=== PATIENT | female | born 2000 | race Caucasian/White ===

== ENCOUNTER 2025-09-02 10:38 | Outpatient (AMB) | payer OTHER, SELFPAY ==
--- NOTE | 2025-09-02 10:46 | A.OFFPC_ITS ---
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 Accompanied by: Self / Same As Patient Allergies No Known Allergies Allergy (Verified 09/02/25 10:56) Medication List - Last Reconciled 09/02/25 by Edwin Peguero MD albuterol sulfate 90 mcg/actuation (Ventolin HFA) 2 puffs inhalation Q6H PRN aripiprazole mg PO aripiprazole 20 mg PO QAM bupropion HCl 100 mg PO BID diphenhydramine HCl 25 mg PO BEDTIME escitalopram oxalate 20 mg PO DAILY lamotrigine 50 mg PO DAILY nicotine (polacrilex) 4 mg buccal Q2H Tobacco use date assessed: 09/02/25 Dental Screening Dental Screen Date: 09/02/25 Did you have a dental visit in the last 12 months?: No Did you have a dental problem in the last 6 months where you did not have access to dental care?: Yes Was dental information given to patient?: Patient has dentist HPI HPI Comments History of Present Illness Details History of Present Illness The patient is a 25-year-old female presenting for evaluation of a wrist cyst. Ganglion cyst of wrist: The patient has a long-standing cyst on her dominant right wrist which has recently begun to cause loss of feeling in her thumb and forefinger. There is no history of a specific injury that caused the cyst. She was previously evaluated at an ER where it was suggested she would need surgical removal. Psychiatric History: The patient has a history of schizophrenia, borderline personality disorder (BPD), and bipolar depression. She is managed on multiple medications, including aripiprazole for auditory hallucinations, bupropion for depression and anxiety, citalopram for anxiety/depression and to help with weight gain, and lamotrigine for mood stabilization. She receives psychiatric care through [facility]. Weakness: The patient reports a progressive weakness in her left side, particularly her left arm, which she first noticed about a year ago. She has a family history of muscular dystrophy, as her mother and close friend whom she considers a sister have the condition. She also reports instances of her ankles giving out, leading to falls, including down a flight of stairs. Exercise-induced asthma: The patient reports trouble breathing and wheezing with strenuous activity, such as walking up a large hill. She has used an inhaler in the past but does not have a current prescription for one. Her mother had a history of asthma. Tobacco use disorder: The patient has been smoking since age 18 and currently smokes 3 to 4 cigarettes per day. She has successfully reduced her intake from a pack a day and expresses a desire to quit, having previously used nicotine gum. Health Maintenance: The patient has not seen a primary care doctor since 2018 and has never had a Pap smear or been to a power checker. She only recently obtained an ID for the first time, which was a barrier to seeking care. Irregular Menstrual Cycle: The patient reports her menstrual cycle is not regular, stating she recently did not have a period for two months, which she attributes to the stress of moving. When she has her period, she typically experiences one day of heavy bleeding followed by tube dispatcher flow. Surgical History: - Reconstructive ear surgery (tympanopla sty) at age 11 or 12 to repair a hole in her eardrum caused by a severe childhood ear infection. Medications: - Aripiprazole (Abilify) for auditory mckeon llucinations - Bupropion (Wellbutrin) for depression and anxiety - Citalopram oxalate for weight gain, an xiety, and depression - Lamotrigine for irritability and anger - Two unspecified medications for anxiet y - Unspecified medication for sleep Social History: - Employment: Currently unemployed but h as been searching for a job for a few months. 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 - Housing: Recently moved from [place], [place] to [place] to live with a close friend she considers a sister. - Substance Use: Smokes 3-4 cigarettes a day, since the age of 18. - Level of Activity: Reports walking solo rywhere as her primary mode of transportation. Family History: - Mother (): Had muscular dystro phy, high blood pressure, diabetes, and asthma. - Sister (close friend): Has muscular dy strophy. Diagnostic Results: - Vitals: Blood pressure is 104/x mmHg. Past Medical History - Schizophrenia - Borderline personality disorder (BPD) - Bipolar disorder with depression - History of hypertension, with usual re adings of 140-160 mmHg, particularly during anxious situations. - History of ruptured eardrum as a baby secondary to an ear infection. Health Maintenance - A comprehensive lab panel including CB C, CMP, HbA1c, lipids, Hep B, Hep C, HIV, TSH, vitamin B12, folate, and vitamin D will be drawn. - The patient was instructed to schedule an appointment for a Pap smear. - A follow-up visit is scheduled in two weeks. [facility], [facility] Medical History (Updated 09/02/25 @ 13:08 by Edwin Peguero MD) Class 1 obesity Nicotine use disorder Mild intermittent asthma Family history of muscular dystrophy Schizophrenia Borderline personality disorder Bipolar depression Ganglion cyst of dorsum of right wrist Mass of right wrist Wrist pain, left Surgical History (Updated 09/02/25 @ 11:02 by Kendall Villegas [facility]) History of ear surgery Family History (Updated 09/02/25 @ 11:03 by Kendall Villegas [employer] REPA[employer] SUPERVISOR) Brother Substance abuse Father Substance abuse FH: mental illness Asthma Mother FH: mental illness Diabetes Hypertension Social History (Updated 09/02/25 @ 11:04 by Kendall Villegas [facility]) Housing: Apartment Alcohol intake: former Patient Tobacco Use Status: Current everyday Tobacco user Cigarettes Per Day: 4 e-Cigarette/Vaping Use: Currently Using Second Hand Smoke Exposure: Yes Substance Use Type: Crack/Cocaine and Marijuana service: No Current occupational status: unemployed Cognitive needs: No Hearing needs: No Vision needs: Yes Questionnaire PHQ-9 Over the last 2 weeks, how often have you been bothered by any of the following problems? 1. Little interest or pleasure in doing things: several days 2. Feeling down, depressed, or hopeless: several days 3. Trouble falling or staying asleep, or sleeping too much: several days 4. Feeling tired or having little energy: several days 5. Poor appetite or overeating: several days 6. Feeling bad about yourself - or that you are a failure or have let yourself or your family down: not at all 7. Trouble concentrating on things, such as reading the newspaper or watching te levision: several days 8. Moving or speaking so slowly that other people could have noticed. Or the opposite - being so fidgety or restless that you have been moving around a lot more than usual: not at all 9. Thoughts that you would be better off or of hurting yourself in some way: not at all Total score: 6 Depression Screening Interpretation: Negative Depression Screening Done: Yes 32257 - PHQ-9 Billing: Yes Source: Developed by Drs. Ronni Denney, Alyx Thomas, Shubham Ding and colleagues, with an educational job from [employer]. Thrive Questionnaire Date Thrive assessed: 09/02/25 I am a: Patient What is your living situation today?: I have a steady place to live Within the past 12 months, did the food you bought not last and you didn't have the money to get more?: Never true Within the past 12 months, did you worry whether your food would run out before you got money to buy more?: Never true Do you have trouble paying for medicines?: No Do you have trouble getting transportation to medical appointments?: Yes Do you have trouble paying your heating and electricity bill?: I choose not to answer this question Do you have trouble taking care of your child, family member or friend?: I choose not to answer this question Are you currently unemployed and looking for a job?: Yes Are you interested in more education?: No Please select the resources that you would like help with: Housing/[facility], Transportation and Job search/training Currently or been in a relationship where the following occur: No concerns reported THRIVE Score: 1 AUDIT C Alcohol Use Questionnaire (AUDIT-C) 1. How often do you have a drink containing alcohol?: Never Total Score: 0 TAL-7 AMB Questionnaire TAL-7 Date TAL - 7 assessed: 09/02/25 Feeling nervous, anxious, or on edge: 1 = Several days Not being able to stop or control worryin = Several days Worrying too much about different things: 1 = Several days Trouble relaxin = Several days Being so restless that it is hard to sit still: 1 = Several days Becoming easily annoyed or irritable: 1 = Several days Feeling afraid as if something awful might happen: 0 = Not at all Total TAL-7 score (0-4 normal; 5-9 mild; 10-14 moderate; 15-21 severe): 6 Source: Developed by Alyx Patino, Shubham Ding and colleagues, with an educational job from [employer]. TAL-7 Assessment Billing TAL-7 Assessment Tool: TAL-7 Assessment 92960 Review of Systems Narrative Review of Systems - Neurological: Reports loss of feeling in the left thumb and forefinger. - Musculoskeletal: Reports progressive weakness on her left side for about a year, particularly in her arm. - Respiratory: Reports trouble breathing and wheezing with strenuous activity. - Psychiatric: Reports hearing voices, irritability, and anger as part of her diagnosed conditions. - Constitutional: Reports not sleeping well despite being on sleep medication. - Genitourinary/Gynecological: Reports irregular menstrual cycles and is currently experiencing menstrual cramps. - GI/: Denies issues with urination or bowel movements. 10-point ROS reviewed and negative except as noted in HPI Physical exam (Primary Care) Vital Signs: Last Vital Signs Temp 98 F 09/02/25 11:04 Pulse 79 09/02/25 11:04 Resp 20 09/02/25 11:04 BP 104/70 09/02/25 11:04 Pulse Ox 97 09/02/25 11:04 Oxygen Delivery Method Room Air 09/02/25 11:04 BMI result Body Mass Index 34.7 Tobacco/Smoking Status: Tobacco use Status Tobacco use date assessed 09/02/25 09/02/25 11:06 Patient Tobacco Use Status Current everyday Tobacco 09/02/25 11:06 e-Cigarette/Vaping Use Currently Using 09/02/25 11:06 PHQ-9: PHQ-9 Score PHQ-9: Total score 6 09/02/25 10:48 Depression Screening Interpretation: Negative Thrive Assessment: Date of Thrive Assessment Date Thrive assessed 09/02/25 09/02/25 10:48 Currently or been in a relationship where the following occur: No concerns reported Narrative Physical Exam General: Well-appearing, in no acute distress. Vital signs: Blood pressure is currently 104, but patient reports it is normally 140-160. HEENT: Normocephalic, atraumatic. PERRLA, EOMI. Conjunctiva clear, sclera anicteric. Oropharynx clear, mucous membranes moist. TMs intact bilaterally, with a scar noted behind the ear from previous reconstructive surgery due to a perforated eardrum. Neck: Supple, no lymphadenopathy, no thyromegaly, no JVD or carotid bruits. Cardiovascular: RRR, normal S1/S2, no murmurs, rubs, or gallops. Peripheral pulses 2+ and symmetric. No edema. Respiratory: Lungs clear to auscultation bilaterally, no wheezes, rales, or rhonchi. Normal effort. Patient reports exercise-induced asthma and will be prescribed an albuterol inhaler. Abdomen: Soft, non-tender, non-distended. Normoactive bowel sounds. No hepatosplenomegaly, no masses. MSK: Full range of motion, no joint swelling or deformity. Normal gait. Patient reports weakness in the left arm and tingling in the left wrist and forefingers. X-ray of the wrist is planned. Skin: Warm, dry, intact. No rashes, lesions, or pallor. Neuro: Alert and oriented x3. Cranial nerves II-XII intact. Strength 5/5 throughout, except noted weakness in the left arm. Sensation intact. Reflexes 2+ symmetric. Normal coordination and gait. Psych: Appropriate mood and affect. Normal judgment and insight. Patient is on multiple medications for schizophrenia, borderline personality disorder, bipolar depression, and anxiety. Coding Level of Care Code New Pt Level 4 (44320) Diagnoses Mass of right wrist R22.31 Wrist pain, left M25.532 Ganglion cyst of dorsum of right wrist M67.431 Bipolar depression F31.9 Borderline personality disorder F60.3 Schizophrenia F20.9 Family history of muscular dystrophy Z82.0 Mild intermittent asthma J45.20 Nicotine use disorder F17.200 Class 1 obesity E66.9 Additional Codes TAL-7 Assessment Billing - TAL-7 Assessment Tool: TAL-7 Assessment 78788 ([id number]) PHQ-9 - 13260 - PHQ-9 Billing: Yes ([id number]) Assessment & Plan Assessment & Plan (1) Mass of right wrist: Code(s): R22.31 - Localized swelling, mass and lump, right upper limb Category: Medical (2) Wrist pain, left: Code(s): M25.532 - Pain in left wrist Category: Medical (3) Ganglion cyst of dorsum of right wrist: Code(s): M67.431 - Ganglion, right wrist Category: Medical (4) Bipolar depression: Code(s): F31.9 - Bipolar disorder, unspecified Category: Medical (5) Borderline personality disorder: Code(s): F60.3 - Borderline personality disorder Category: Medical (6) Schizophrenia: Code(s): F20.9 - Schizophrenia, unspecified Category: Medical (7) Family history of muscular dystrophy: Code(s): Z82.0 - Family history of epilepsy and other diseases of the nervous system Category: Medical (8) Mild intermittent asthma: Code(s): J45.20 - Mild intermittent asthma, uncomplicated Category: Medical (9) Nicotine use disorder: Code(s): F17.200 - Nicotine dependence, unspecified, uncomplicated Category: Medical (10) Class 1 obesity: Code(s): E66.9 - Obesity, unspecified Category: Medical Plan Consent The need for a Pap smear for cervical cancer screening was discussed with the patient, as she is over 21 and has never had one. The options of having the procedure done by a family medicine physician or receiving a referral to an BUSINESS APPLICATIONS SPECIALIST were presented. The patient expressed a preference to keep it all in house and verbally consented to having the Pap smear performed by her primary care doctor. Patient was informed and verbally consented to the use of an ambient scribe for clinic note documentation during this visit. Plan 1. Ganglion Cyst Of Right Wrist - An X-ray of the right wrist will be obtained to evaluate the calcified lesion. 2. Exercise-Induced Asthma - An albuterol sulfate inhaler will be prescribed for use during strenuous activity to manage symptoms of wheezing and dyspnea. 3. Tobacco Use Disorder - Nicotine gum will be prescribed to aid in smoking cessation, as the patient prefers this method over patches. 4. Weakness - The workup for left-sided weakness will be deferred to the next visit. - The patient was advised to find the specific name of the muscular dystrophy from her mother's records. - Future consideration will be given to a physical therapy referral and genetic testing. Discussion Notes I discussed the patient's primary concern regarding the calcified wrist cyst and the new onset of numbness. I explained that we would start with an X-ray to further evaluate it. We also addressed her breathing difficulties with exertion, and I have prescribed an albuterol inhaler for probable exercise-induced asthma. Regarding her left-sided weakness and family history of muscular dystrophy, I advised that we would address this more thoroughly at our next visit, giving her time to locate her mother's medical notes for the specific diagnosis. We discussed her desire to quit smoking, and I prescribed nicotine gum as she has used it successfully in the past. I initiated health maintenance as she has not had a PCP since 2018. I explained the recommendation for cervical cancer screening via a Pap smear for women over 21. I offered a referral to an BUSINESS APPLICATIONS SPECIALIST or to perform it here, and she consented to having it done in-house. I informed her that I would be ordering a comprehensive panel of bloodwork. We have scheduled a follow-up appointment in two weeks. Patient Instructions - Please proceed to the lab next door to have your blood drawn today. - We have ordered an X-ray of your right wrist, please get this done before your next visit. - I have sent a prescription for an albuterol inhaler to your pharmacy; use this when you experience shortness of breath with activity. - I have also sent a prescription for nicotine gum to help you quit smoking. - When you check out, please schedule a follow-up appointment for two weeks from now. - Also, ask to schedule a separate appointment for a Pap smear. - Please try to find the papers from your mother that have the specific name of the muscular dystrophy in your family. Medical Decision Making The patient is a 25-year-old female with a complex psychiatric history establishing primary care after a long interval. Her chief complaint of a right wrist cyst with new neurological symptoms (numbness) warrants imaging; an X-ray is the appropriate initial step given the palpable calcification and to rule out other osseous pathology before considering surgical referral. Her symptoms of dyspnea and wheezing with exertion are highly suggestive of exercise-induced asthma, and empiric treatment with an albuterol inhaler is indicated for symptomatic relief and safety, especially since she relies on walking for transportation. The patient's desire to quit smoking is a avitia opportunity for intervention, and nicotine replacement with gum is a suitable choice given her past experience and preference. The report of progressive left-sided weakness is concerning in the context of a strong family history of muscular dystrophy. However, this is a new and complex issue that requires more information before a diagnostic and management plan can be formulated. Therefore, I have deferred a full workup to the next visit to allow the patient time to gather essential family medical history. Finally, given her age and lack of recent medical care, initiating health maintenance is a priority. I have ordered a comprehensive lab panel to establish a baseline and screen for common conditions, and advised for a pap smear as per screening guidelines, to which she consented. Total Time Statement 30 min Total time spent caring for the patient today includes pre-visit chart review, documentation, review of laboratory and diagnostic imaging results, medication reconciliation, medically necessary evaluation, counseling on diagnoses, care coordination, ordering appropriate tests and medications, review of tests performed by other providers, reporting test results to the patient, and communication with other healthcare providers. Orders: Orders XR wrist RT min 3V Today M25.532 - Pain in left wrist, R22.31 - Localized swelling, mass and lump, right upper limb Complete Blood Count Auto Diff Today Z13.9 - Encounter for screening, unspecified Hepatitis B Surface Antigen Today Z13.9 - Encounter for screening, unspecified Hepatitis C Antibody Today Z13.9 - Encounter for screening, unspecified UA CC w/rflx Micro + Cult Today Z13.9 - Encounter for screening, unspecified Vitamin B12 and Folate Today Z13.9 - Encounter for screening, unspecified Hemoglobin A1c Today Z13.9 - Encounter for screening, unspecified Comprehensive Met. Panel Today Z13.9 - Encounter for screening, unspecified TSH reflex Free T4 Today Z13.9 - Encounter for screening, unspecified HIV Ab/Ag Today Z13.9 - Encounter for screening, unspecified Lipid Panel Today Z13.9 - Encounter for screening, unspecified Magnesium Today Z13.9 - Encounter for screening, unspecified Vitamin D 1,25 dihydroxy Today Z13.9 - Encounter for screening, unspecified Hepatitis B Surface Antibody Today Z13.9 - Encounter for screening, unspecified Medications: New albuterol sulfate 90 mcg/actuation (Ventolin HFA) 2 puffs inhalation Q6H PRN 8.5 grams 0RF shortness of breath or wheezing nicotine (polacrilex) 4 mg buccal Q2H 100 ea 0RF
[2025-09-02 11:04] VITALS: BP 104/70; PULSE 79; RESP 20; TEMP 36.6; O2SAT 97; BMI 34.7
== END 2025-09-02 11:33 | disposition home or self-care (01) ==
PROVIDERS: PCP Internal Medicine; Visit Provider Student in an Organized Health Care Education/Training Program
DX: R22.31 Localized swelling, mass and lump, right upper limb (principal); M25.532 Pain in left wrist; M67.431 Ganglion, right wrist; F31.9 Bipolar disorder, unspecified; F60.3 Borderline personality disorder; F20.9 Schizophrenia, unspecified; Z82.0 Family history of epilepsy and other diseases of the nervous system; J45.20 Mild intermittent asthma, uncomplicated; F17.200 Nicotine dependence, unspecified, uncomplicated; E66.9 Obesity, unspecified

== ENCOUNTER 2025-09-02 10:38 | Outpatient (REF) | payer OTHER, SELFPAY ==
[2025-09-02 18:14] LABS: MANUAL DIFF FLAG NO
[2025-09-02 18:39] LABS: Hematocrit 37.5 % (37.0-47.0); Hemoglobin 11.8 g/dl (12.0-16.0); Imm Gran Abs Auto 0.03 X10*3/uL (0.00-0.03); Imm Gran Pct Auto 0.4 % (0.0-0.4); Lymphocytes Absolute Auto 2.3 X10*3/uL (1.2-4.9); Mean Corpuscular HGB Conc 31.5 g/dl (31.0-35.0); Mean Corpuscular Hemoglobin 27.6 pg (27.0-33.0); Mean Corpuscular Volume 87.6 fL (80.0-98.0); NRBC Abs Auto 0.000 X10*3/uL (0.0-0.012); NRBC Pct Auto 0.0 /100WBC (0.0-0.2); Platelet Count 350 X10*3/uL (160-400); Red Blood Count 4.28 X10*6/uL (4.20-5.50); White Blood Count 8.4 X10*3/uL (4.8-10.8)
[2025-09-02 18:49] LABS: Alanine Aminotransferase 20 U/L (0-31); Albumin Level 4.5 g/dL (3.5-5.0); Alkaline Phosphatase 103 U/L (39-117); Anion Gap 12 (12-20); Aspartate Amino Transferase 31 U/L (5-31); Blood Urea Nitrogen 12 mg/dL (9-16); Calcium 9.4 mg/dL (8.4-10.2); Carbon Dioxide 26 mmol/L (22-29); Chloride 108 mmol/L (96-108); Cholesterol 172 mg/dL (<200); Estimated Glomerular Filt Rate > 60; HDL Cholesterol 36 mg/dL (>40); Magnesium 2.4 mg/dL (1.6-2.6); Potassium 4.5 mmol/L (3.3-5.1); Sodium 141 mmol/L (135-145); Total Protein 7.6 g/dL (6.5-8.0); Triglycerides 239 mg/dL (<150)
[2025-09-02 19:16] LABS: Folate 6.8 ng/mL (> or = 4.0); Vitamin B12 647 pg/mL (200-900)
[2025-09-03 08:28] LABS: HBS Num1 0.00 mIU/mL (0-7.99); HBsAGNum1 0.36 S/CO (0.00-0.99); HIV Num 1 0.05 S/CO (0.00-0.99); Hepatitis B Surface Antigen Negative (Negative); ~HepC Num1 0.09 S/CO (0.00-0.79); ~Hepatitis B Surface Antibody NONREACTIVE (Nonreactive); ~Hepatitis C Antibody Nonreactive (Nonreactive)
[2025-09-06 01:59] LABS: VITAMIN D (1,25 OH) D3 64 pg/mL; Vit D (1,25-Dihydroxy) Total 64 pg/mL (18-72); Vitamin D (1,25 OH) D2 <8 pg/mL
== END 2025-09-02 10:39 | disposition home or self-care (01) ==
LOC: HO.HKASLDS 10:38
PROVIDERS: PCP Internal Medicine; Visit Provider Student in an Organized Health Care Education/Training Program
DX: Z13.9 Encounter for screening, unspecified (principal); R22.31 Localized swelling, mass and lump, right upper limb; M25.532 Pain in left wrist; M67.431 Ganglion, right wrist; F31.9 Bipolar disorder, unspecified; F60.3 Borderline personality disorder; F20.9 Schizophrenia, unspecified; J45.20 Mild intermittent asthma, uncomplicated; E66.9 Obesity, unspecified; F17.210 Nicotine dependence, cigarettes, uncomplicated; Z79.899 Other long term (current) drug therapy; Z68.34 Body mass index [BMI] 34.0-34.9, adult; Z82.0 Family history of epilepsy and other diseases of the nervous system
CPT/HCPCS: 36415; 80053; 80061; 82607; 82652; 82746; 83036; 83735; 84443; 85025; 86706; 86803; 87340; 87389; 96127; 99202

== ENCOUNTER 2025-09-20 10:27 | Outpatient (AMB) | payer OTHER, SELFPAY ==
[2025-09-20 10:31] VITALS: BP 119/56; PULSE 89; TEMP 36.6; O2SAT 97; BMI 34.5
--- NOTE | 2025-09-20 10:31 | MHC.PC.OV ---
Vital Signs 09/20/25 10:31 Height 5 ft 3 in Weight 194 lb 8 oz BMI 34.5 BP 119/56 L Blood Pressure Location Rt brachial Position Sitting Pulse 89 Pulse Source Pulse Oximeter Temp 97.9 F Temp Source Oral Pulse Oximetry (%) 97 Oxygen Delivery Method Room Air Intake Visit Reasons: 2 wk - lab review Accompanied by: Self / Same As Patient Allergies No Known Allergies Allergy (Verified 09/20/25 10:31) Medication List - Last Reconciled 09/20/25 by Edwin Peguero MD albuterol sulfate 90 mcg/actuation (Ventolin HFA) 2 puffs inhalation Q6H PRN aripiprazole mg PO aripiprazole 20 mg PO QAM bupropion HCl 100 mg PO BID diphenhydramine HCl 25 mg PO BEDTIME escitalopram oxalate 20 mg PO DAILY hydroxyzine HCl 50 mg PO DAILY PRN lamotrigine 100 mg PO QPM nicotine (polacrilex) 4 mg buccal Q2H quetiapine 25 - 50 mg PO BEDTIME Tobacco use date assessed: 09/20/25 Dental Screening Dental Screen Date: 09/20/25 Did you have a dental visit in the last 12 months?: Yes HPI HPI Comments History of Present Illness Details History of Present Illness The patient is a 25 year old individual presenting for a review of laboratory results and a new complaint of bilateral knee symptoms. Bilateral knee pain: The patient reports a long-standing history of bilateral knee popping, which has been occurring for so long that the patient has lost track of its onset. The patient believes it may be related to playing a lot of sports as a child. More recently, the left knee has started to pop and lock, which occurs when the patient attempts to stand up. The locking episodes are described as very painful, rated as a 6 or 7 out of 10, and it is also painful to resolve the locking. Dyslipidemia: Recent laboratory results revealed dyslipidemia, characterized by elevated triglycerides at 239 mg/dL and a low good cholesterol (HDL) level of 36 mg/dL. The patient's diet includes consuming sodas or sweetened drinks, as well as cheese and eggs. Medication Non-Adherence: The patient reports not having started the prescribed Paliperidone due to needing to resolve an issue with the insurance provider. Unresolved Wrist Injury: The patient has not yet had a previously ordered X-ray for a wrist issue. Medications: - Paliperidone: Prescribed, but not yet started by the patient. Social History: - Diet: Reports consuming sodas or sweetened drinks, cheese, and eggs. - Physical Activity: Reports having played a lot of sports as a child. - Family Status: Mentions having a fiance. Diagnostic Results: - Labs: - Complete blood count: Normal. - Comprehensive metabolic panel: Normal sodium, potassium, kidney function, liver function, and calcium. - Hemoglobin A1c: Normal. - Lipid panel: Total cholesterol and LDL are good; triglycerides are elevated at 239 mg/dL; HDL is low at 36 mg/dL. - Vitamin B12: Great. - Vitamin D: Good. - Folate: Good. - Thyroid function: Good. - Hepatitis B, Hepatitis C, and HIV serologies: Negative. Past Medical History - History of knee popping for a prolonged duration. - Past history of playing a lot of sports as a child. - History of an unspecified wrist injury pending an X-ray. Health Maintenance - Lab review: Complete blood count, chemistry panel, HbA1c, vitamins, and thyroid function were all within normal limits. - Dyslipidemia management: Advised to reduce intake of sodas, sweetened drinks, cheese, and eggs to address elevated triglycerides and low HDL. - Infectious disease screening: Negative for Hepatitis B, Hepatitis C, and HIV. - Follow-up: Recommended to return in six months. [facility] Medical History (Updated 09/20/25 @ 15:38 by Edwin Peguero MD) Dyslipidemia Pain in both knees Locking of both knees Popping of both knee joints Class 1 obesity Nicotine use disorder Mild intermittent asthma Family history of muscular dystrophy Schizophrenia Borderline personality disorder Bipolar depression Ganglion cyst of dorsum of right wrist Mass of right wrist Wrist pain, left Surgical History History of ear surgery Family History Brother Substance abuse Father Substance abuse FH: mental illness Asthma Mother FH: mental illness Diabetes Hypertension Social History Housing: Apartment Alcohol intake: former Patient Tobacco Use Status: Current everyday Tobacco user Cigarettes Per Day: 4 e-Cigarette/Vaping Use: Currently Using Second Hand Smoke Exposure: Yes Substance Use Type: Crack/Cocaine and Marijuana service: No Current occupational status: unemployed Cognitive needs: No Hearing needs: No Vision needs: Yes Questionnaire PHQ-9 Over the last 2 weeks, how often have you been bothered by any of the following problems? 1. Little interest or pleasure in doing things: several days 2. Feeling down, depressed, or hopeless: several days 3. Trouble falling or staying asleep, or sleeping too much: several days 4. Feeling tired or having little energy: several days 5. Poor appetite or overeating: several days 6. Feeling bad about yourself - or that you are a failure or have let yourself or your family down: not at all 7. Trouble concentrating on things, such as reading the newspaper or watching television: several days 8. Moving or speaking so slowly that other people could have noticed. Or the opposite - being so fidgety or restless that you have been moving around a lot more than usual: not at all 9. Thoughts that you would be better off or of hurting yourself in some way: not at all Total score: 6 Depression Screening Interpretation: Negative Depression Screening Done: Yes 59234 - PHQ-9 Billing: Yes Source: Developed by Drs. 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 Thrive Questionnaire Date Thrive assessed: 09/20/25 I am a: Patient What is your living situation today?: I have a steady place to live Within the past 12 months, did the food you bought not last and you didn't have the money to get more?: Never true Within the past 12 months, did you worry whether your food would run out before you got money to buy more?: Never true Do you have trouble paying for medicines?: No Do you have trouble getting transportation to medical appointments?: Yes Do you have trouble paying your heating and electricity bill?: I choose not to answer this question Do you have trouble taking care of your child, family member or friend?: I choose not to answer this question Do you have trouble with day-to-day activities such as bathing, preparing meals, shopping, managing finances, etc.?: Yes Are you currently unemployed and looking for a job?: Yes Are you interested in more education?: No Currently or been in a relationship where the following occur: No concerns reported THRIVE Score: 1 AUDIT C Alcohol Use Questionnaire (AUDIT-C) 1. How often do you have a drink containing alcohol?: Never 2. How many drinks containing alcohol do you have on a typical day when you are drinking?: 1 or 2 3. How often do you have six or more drinks on one occasion?: Never Total Score: 0 TAL-7 AMB Questionnaire TAL-7 Date TAL - 7 assessed: 09/20/25 Feeling nervous, anxious, or on edge: 1 = Several days Not being able to stop or control worryin = Several days Worrying too much about different things: 1 = Several days Trouble relaxin = Several days Being so restless that it is hard to sit still: 1 = Several days Becoming easily annoyed or irritable: 1 = Several days Feeling afraid as if something awful might happen: 0 = Not at all Total TAL-7 score (0-4 normal; 5-9 mild; 10-14 moderate; 15-21 severe): 6 Source: Developed by Drs. 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 TAL-7 Assessment Billing TAL-7 Assessment Tool: TAL-7 Assessment 94880 Review of Systems Narrative Review of Systems - Musculoskeletal: The patient reports popping in both knees when straightened. - The patient also reports that the left knee pops and locks, which is associated with pain. - The pain with locking is rated a 6 or 7 out of 10 in severity. 10-point ROS reviewed and negative except as noted in HPI Physical exam (Primary Care) Vital Signs: Last Vital Signs Temp 97.9 F 09/20/25 10:31 Pulse 89 09/20/25 10:31 BP 119/56 L 09/20/25 10:31 Pulse Ox 97 09/20/25 10:31 Oxygen Delivery Method Room Air 09/20/25 10:31 BMI result Body Mass Index 34.5 Tobacco/Smoking Status: Tobacco use Status Tobacco use date assessed 09/20/25 09/20/25 10:32 Patient Tobacco Use Status Current everyday Tobacco 09/20/25 10:32 e-Cigarette/Vaping Use Currently Using 09/20/25 10:32 PHQ-9: PHQ-9 Score PHQ-9: Total score 6 09/20/25 10:45 Depression Screening Interpretation: Negative Thrive Assessment: Date of Thrive Assessment Date Thrive assessed 09/20/25 09/20/25 10:32 Currently or been in a relationship where the following occur: No concerns reported Narrative Physical Exam General: Well-appearing, in no acute distress. Vital signs: Within normal limits. HEENT: Normocephalic, atraumatic. PERRLA, EOMI. Conjunctiva clear, sclera anicteric. Oropharynx clear, mucous membranes moist. TMs intact bilaterally. Neck: Supple, no lymphadenopathy, no thyromegaly, no JVD or carotid bruits. Cardiovascular: RRR, normal S1/S2, no murmurs, rubs, or gallops. Peripheral pulses 2+ and symmetric. No edema. Respiratory: Lungs clear to auscultation bilaterally, no wheezes, rales, or rhonchi. Normal effort. Abdomen: Soft, non-tender, non-distended. Normoactive bowel sounds. No hepatosplenomegaly, no masses. MSK: Full range of motion, no joint swelling or deformity. Normal gait. Notable popping and locking of both knee joints, particularly the left knee, with associated pain rated at 6-7/10 when it locks. WRIST MASS LEFT Skin: Warm, dry, intact. No rashes, lesions, or pallor. Neuro: Alert and oriented x3. Cranial nerves II-XII intact. Strength 5/5 throughout. Sensation intact. Reflexes 2+ symmetric. Normal coordination and gait. Psych: Appropriate mood and affect. Normal judgment and insight. Office Procedures Flu Questionnaire Does the patient have a severe egg allergy?: No Does the patient have severe life threatening allergies?: No Does the patient have a fever or illness today?: No Has the patient ever had Guillain-La Rue Syndrome?: No Has the patient ever had any past reaction to a flu shot?: No Immunizations Fluarix [id number] (PF) 45 mcg (15 mcg x 3)/0.5 mL IM syringe Performing Provider: Edwin Peguero MD Performing Location: [facility] [place] [facility] Administered by: Ira Boles CMA on 09/20/25 10:46 Dose Route Admin Location Dispensed Lot Number Expiration Date [facility] Machine Cleaner 0.5 mL IM Left Deltoid 0.5 mL [id number] 06/30/26 [id number] Frilp VIS Given Date VIS Provided VIS Publication Date 09/20/25 Single Vaccine 24 Eligibility Eligibility Date Funding Source Not [facility] Eligible 09/20/25 Private Coding Level of Care Code Est Pt Level 3 (61979) Diagnoses Pain in both knees M25.561; M25.562 Dyslipidemia E78.5 Locking of both knees M23.91; M23.92 Mild intermittent asthma J45.20 Mass of right wrist R22.31 Nicotine use disorder F17.200 Schizophrenia F20.9 Borderline personality disorder F60.3 Bipolar depression F31.9 Class 1 obesity E66.9 Additional Codes TAL-7 Assessment Billing - TAL-7 Assessment Tool: TAL-7 Assessment 81152 ([id number]) PHQ-9 - 01886 - PHQ-9 Billing: Yes ([id number]) Assessment & Plan Assessment & Plan (1) Pain in both knees: Code(s): M25.561 - Pain in right knee; M25.562 - Pain in left knee Category: Medical (2) Dyslipidemia: Code(s): E78.5 - Hyperlipidemia, unspecified Category: Medical (3) Locking of both knees: Code(s): M23.91 - Unspecified internal derangement of right knee; M23.92 - Unspecified internal derangement of left knee Category: Medical (4) Mild intermittent asthma: Code(s): J45.20 - Mild intermittent asthma, uncomplicated Category: Medical (5) Mass of right wrist: Code(s): R22.31 - Localized swelling, mass and lump, right upper limb Category: Medical (6) Nicotine use disorder: Code(s): F17.200 - Nicotine dependence, unspecified, uncomplicated Category: Medical (7) Schizophrenia: Code(s): F20.9 - Schizophrenia, unspecified Category: Medical (8) Borderline personality disorder: Code(s): F60.3 - Borderline personality disorder Category: Medical (9) Bipolar depression: Code(s): F31.9 - Bipolar disorder, unspecified Category: Medical (10) Class 1 obesity: Code(s): E66.9 - Obesity, unspecified Category: Medical Plan Consent The patient verbally agreed to undergo bilateral knee X-rays to evaluate the reported symptoms of popping and locking. Patient was informed and verbally consented to the use of an ambient scribe for clinic note documentation during this visit. Plan 1. Bilateral Knee Pain - An order for bilateral knee X-rays (four views) will be placed to evaluate the popping and locking. - The patient is instructed to schedule a follow-up appointment after the X-rays are completed to review the results. 2. Dyslipidemia - Recommended dietary modifications, including reducing the intake of sodas, sweetened drinks, cheese, and eggs to improve triglyceride and HDL levels. 3. Medication Management - The patient will contact the insurance or medication provider to resolve access issues for the prescribed Paliperidone. 4. General Health Maintenance - A follow-up appointment is recommended in six months. 5. Unresolved Wrist Injury - Advised the patient to call and schedule the previously ordered wrist X-ray. Discussion Notes I reviewed the lab results with the patient, noting that most values, including the complete blood count, chemistry, and HbA1c, were normal. I highlighted the elevated triglycerides and low HDL, and we discussed dietary changes, such as reducing sugary drinks, cheese, and eggs, to help improve these levels. We then discussed the patient's symptoms of knee popping and locking, which are associated with significant pain. I explained that I would order bilateral knee X-rays to investigate the cause. I instructed the patient to complete the imaging and then schedule a follow-up visit with me. We also addressed the pending wrist X-ray and the issue with starting Paliperidone, and I advised the patient on the necessary next steps for each. A routine follow-up in six months was recommended. Patient Instructions - To help with your cholesterol, please cut down on sodas, sweetened drinks, cheese, and eggs. - I have ordered X-rays for both of your knees. - After you get your knee X-rays, please make an appointment to come see me to go over the results. - Please call to schedule the X-ray for your wrist that was ordered previously. - You will need to contact your insurance or medication provider to get your Paliperidone prescription filled. - Please schedule a follow-up visit in six months. Medical Decision Making The patient is a 25-year-old individual who presented for a review of laboratory findings and a new complaint of bilateral knee symptoms. The lab work was mostly reassuring, but revealed a dyslipidemia with elevated triglycerides (239 mg/dL) and low HDL (36 mg/dL), which I attribute to the patient's reported diet. Initial management will consist of dietary counseling to reduce intake of sweetened drinks and high-fat foods like cheese and eggs. The patient's primary complaint of bilateral knee popping and, more significantly, painful locking in the left knee, is concerning for an internal derangement. Given the mechanical nature of the symptoms and a history of sports participation, a meniscal tear or loose body is on the differential. My immediate plan is to obtain four-view bilateral knee X-rays to assess for any osseous abnormalities. Follow-up after imaging will be crucial to determine the need for further diagnostics, such as an MRI, or a referral to orthopedics. Total Time Statement 20 MIN Total time spent caring for the patient today includes pre-visit chart review, documentation, review of laboratory and diagnostic imaging results, medication reconciliation, medically necessary evaluation, counseling on diagnoses, care coordination, ordering appropriate tests and medications, review of tests performed by other providers, reporting test results to the patient, and communication with other healthcare providers. Orders: Orders Influenza [id number] Immunization Today Z23 - Encounter for immunization XR Knee Victoriano 4V Today M23.91 - Unspecified internal derangement of right knee, M23.92 - Unspecified internal derangement of left knee, M25.561 - Pain in right knee, M25.562 - Pain in left knee, R29.898 - Other symptoms and signs involving the musculoskeletal system
== END 2025-09-20 10:52 | disposition home or self-care (01) ==
LOC: HO.HMCFMS 10:28
PROVIDERS: PCP Student in an Organized Health Care Education/Training Program; Visit Provider Student in an Organized Health Care Education/Training Program
DX: M25.561 Pain in right knee (principal); M25.562 Pain in left knee; E78.5 Hyperlipidemia, unspecified; M23.91 Unspecified internal derangement of right knee; M23.92 Unspecified internal derangement of left knee; J45.20 Mild intermittent asthma, uncomplicated; R22.31 Localized swelling, mass and lump, right upper limb; F17.200 Nicotine dependence, unspecified, uncomplicated; F20.9 Schizophrenia, unspecified; F60.3 Borderline personality disorder; F31.9 Bipolar disorder, unspecified; E66.9 Obesity, unspecified; Z23 Encounter for immunization

== ENCOUNTER → 2025-09-20 10:27 | Outpatient (BNVA) | payer OTHER, SELFPAY | PROVIDERS: PCP Student in an Organized Health Care Education/Training Program; Visit Provider Student in an Organized Health Care Education/Training Program | DX: Z23 Encounter for immunization (principal); M25.561 Pain in right knee; M25.562 Pain in left knee; E78.5 Hyperlipidemia, unspecified; M23.91 Unspecified internal derangement of right knee; M23.92 Unspecified internal derangement of left knee; J45.20 Mild intermittent asthma, uncomplicated; R22.31 Localized swelling, mass and lump, right upper limb; F20.9 Schizophrenia, unspecified; F60.3 Borderline personality disorder; F31.9 Bipolar disorder, unspecified; E66.9 Obesity, unspecified; F17.200 Nicotine dependence, unspecified, uncomplicated; Z68.34 Body mass index [BMI] 34.0-34.9, adult; Z71.6 Tobacco abuse counseling; Z71.3 Dietary counseling and surveillance | CPT/HCPCS: 90471; 90656; 96127; 99212 ==